=== PATIENT | female | born 1990 | race Caucasian/White ===

== ENCOUNTER 2017-01-05 13:41 | Emergency (ER) | payer SELFPAY ==
[~2017-01-05 13:41] MED LIST: Lactated Ringers 1,000 ML IV ONE; Oxytocin 10 Units/1 ML SDV ONE
--- NOTE | 2017-01-05 14:28 | PCM.SN ---
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 Patient arrived at ER approximately 1341 with history of "passing out" at home and heavy vaginal bleeding. Denies any serious medical illnesses or problems. PH/ROS negative. Physical exam at 1352 Temp 36.7, Heart Rate 143, BP 110/70 Resp 12 95% sat 1422 BP 100/60, pulse 104, Resp 18 O2 100% Patient awake alert oriented upon arrival to ER. Chest normal exam normal breath sounds Cor: Rapid rate 140 no abnormal heart sounds Abdomen soft no guarding rebound or referred pain BUS, Vulva, large amount of blood on sheet/blanket approximately 100-200 ml and large basin brought in with approximately 1000 ml with clots, vaginal exam cord hanging from vaginal opening. Uterus at umbilicus. Extremities normal. IMP: Delivery at home by history 1209 01/05/2017 with retained placenta and hemorrhage Plan: Labs ordered Placenta delivered spontaneously Kaplan, grossly intact on examination at 1356 01/05/2017 USG obtained to see if additional findings 20 units pitocin in 1000 ml RL initially at 999 ml/h and after bleeding controlled to 150 ml/hr then 100 ml/ now to 50 ml/h Patient stable at end of delivery of placenta B Positive H/H 11.3/34.5 USG isoechoic area with hypoechoic ring lower uterine segment 4.5x3.1x4.7 cm may represent clot, retained POC cannot be ruled out. Pt Declined D&C but will return if bleeding, fever, foul odor, passage of tissue. Discharge instructions given.
[2017-01-05] MEDS ORDERED: Lactated Ringers 1,000 ML IV ONE ×2 (15:59→16:01)
--- NOTE | 2017-01-05 18:54 | PCM.SN ---
- Free Text/Narrative Note: When patient tried to sit/stand to leave developed tachycardia, hypotension and fainted, Hgb ordered at 1735 8.3. patient consented to two units packed red blood cells. Forms singed (consent to transfusion of human blood) First unit almost transfused.
[2017-01-05 20:58] VITALS: BP 104/70
--- NOTE | 2017-01-06 15:54 | US ---
Pelvic ultrasound: Multiple real-time images were obtained transvaginally. Endometrial abnormality is seen measuring up to 4.7 cm. This could represent blood clot and/or retained products of conception. No myometrial abnormality is appreciated. Both ovaries are not well seen. No free fluid is seen. Impression: 1. Endometrial abnormality measuring up to 4.7 cm. Differential includes blood clot as well as retained products of conception. 2. No additional abnormality is appreciated. Diagnostic code #3 I agree with preliminary report issued by [facility] ([facility] report finalized on 01/05/17, 4:19 PM Central Time)
== END 2017-01-05 21:08 | disposition home or self-care (01) ==
LOC: JD.ED 13:41
DX: O72.0 Third-stage hemorrhage (principal); Z37.9 Outcome of delivery, unspecified; R55 Syncope and collapse
CPT/HCPCS: 36415; 36430; 76856; 80053; 85014; 85018; 85025; 85362; 85384; 85610; 85730; 86850; 86900; 86901; 86922; 88307; 96361; 96365; 96366; 99285; J2590; J7120; P9016

== ENCOUNTER 2022-08-14 21:37 | Emergency (ER) | payer OTHER ==
[2022-08-14 23:53] VITALS: PULSE 79
== END 2022-08-15 01:15 | disposition home or self-care (01) ==
LOC: JD.ED 21:37
DX: L03.116 Cellulitis of left lower limb (principal)
CPT/HCPCS: 36415; 85025; 85379; 99283